=== PATIENT | female | born 1980 | race Caucasian/White ===

== ENCOUNTER 2017-03-05 20:37 | Emergency (ER) | payer SELFPAY ==
[~2017-03-05] VITALS: Ht 170.2 cm; Wt 104.0 kg
[2017-03-05 21:50] VITALS: BP 121/76
== END 2017-03-06 | disposition home or self-care (01) ==
LOC: ER 23:39
DX: J06.9 Acute upper respiratory infection, unspecified (principal); B34.9 Viral infection, unspecified; F15.10 Other stimulant abuse, uncomplicated; F20.9 Schizophrenia, unspecified; Z88.0 Allergy status to penicillin; Z88.8 Allergy status to other drugs, medicaments and biological substances
CPT/HCPCS: 99282